=== PATIENT | male | born 1950 | race Caucasian/White ===

== ENCOUNTER 2024-09-09 19:10 | Emergency (ER) | payer MEDICARE, BC | END 2024-09-09 19:44 | disposition home or self-care (01) | LOC: KA.ED 19:10 | DX: S60.455A Superficial foreign body of left ring finger, initial encounter (principal); I10 Essential (primary) hypertension; W45.8XXA Other foreign body or object entering through skin, initial encounter | CPT/HCPCS: 99283 ==